=== PATIENT | male | born 1985 | race Caucasian/White ===

== ENCOUNTER 2016-07-04 12:26 | Emergency (ER) | payer BC ==
[2016-07-04] MEDS ORDERED: KETOROLAC 60 MG/2 ML VIAL IM ONE (12:43)
[2016-07-04] MEDS ORDERED: HYDROcodone-APAP 5 MG -325 MG TABLET PO ONE (12:43)
[2016-07-04 13:12] VITALS: RESP 18; TEMP 97
--- NOTE | 2016-07-04 14:01 | DI ---
LUMBAR SPINE SERIES, 07/04/2016 12:44 PM: Clinical History: Low back pain. Previous Exam: None at this facility. AP and lateral views are submitted. There is loss of the usual lumbar lordosis. The vertebral bodies are of normal height and size. The disc spaces are normal. The pedicles and posterior elements are un remarkable. Both SI joints are normal. Reading: Normal lumbar spine series.
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
== END 2016-07-04 13:59 ==
LOC: ER 12:26
DX: M54.5 Low back pain (principal); X50.0XXA Overexertion from strenuous movement or load, initial encounter
CPT/HCPCS: 72100; 96372; 99282 ×2; J1885; J2360